=== PATIENT | male | born 1935 | race Caucasian/White ===

== ENCOUNTER 2020-06-08 18:24 | Inpatient (IN) | payer MEDICARE, BC ==
[~2020-06-08] VITALS: Ht 182.9 cm; Wt 79.4 kg
[2020-06-08] MEDS ORDERED: MEMA10TA PO (18:41)
[2020-06-08] MEDS ORDERED: SIMV-46 PO (18:41)
[2020-06-08] MEDS ORDERED: DONE10TA44 PO (18:41)
[2020-06-08] MEDS ORDERED: MULT-447 PO (18:44)
--- NOTE | 2020-06-08 19:32 | NUR ---
GPS RN NOTES: ADMISSION ADMITTED 84 Y/O MALE. PT ADMITTED FROM [facility] TO [facility] ON A 5150 DTS. PER HOLD PT IS HAVING SI. PTS SON CALLED [employer] STATING PT SAID HE WANTED TO END HIS LIFE. PER HOLD PT IS SCARED HE IS GOING TO KILL HIMSELF. IF HE DOESN'T RESERVE HELP. PT REFERENCED NUMEROUS FIREARMS IN HIS HOME A MEANS OF HARMING HIMSELF. UPON FACE TO FACE ASSESSMENT PT IS A/O X3, COOPERATIVE, QUIET, DEPRESSED, FRIENDLY WHEN SPOKEN TO, RESERVED, GUARDED, ANXIOUS, FEARFUL, FLAT AFFECT, AND COMPLAINT. PT IS AMBULATORY W/ ASSISTED DEVICE BUT HAS AN UNSTEADY GAIT. PT EVAL ORDERED FOR THE MORNING . 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 PT PREFERS TO HAVE THEM WITH HIM. HEARING AIDS AT BEDSIDE. PT HAS NO HI AT THIS TIME. WHEN ASKED IF PT IS HAVING SI, PT IS VAGUE AND DOES NOT ANSWER THE QUESTION. SAFETY CHECK Q15 MIN ADMINISTERED FOR SAFETY. PT CURRENTLY HAS NO PLAN TO HURT HIMSELF FOR NOW BECAUSE HE STATES HE IS GETTING HELP HERE. PT SIGNED CONSENT PAPERS. ENVIRONMENTAL SAFETY CHECK Q15 MIN. ENCOURAGE PT TO VERBALIZE THOUGHTS AND FEELINGS TO STAFF. ORIENTED PT IN THE UNIT. AIRCRAFT PILOT MD AWARE OF PTS ADMISSION AND NOTIFY REGARDING MED RECON. BELONGINGS CHECKED FOR CONTRABAND. NURSING ASSESSMENT DONE. SKIN ASSESSMENT DONE. WITH LEFT AND RIGHT OLD SCAR ON THE KNEE, UPPER CHEST REDNESS, UPPER BACK REDNESS, AND OLD SCARS ON HIS FOREHEAD. WOUND CONSULT ORDERED. PICTURES TAKEN AND PLACED ON CHART. PT HAS NUMEROUS TATTOOS ON HIS LOWER AND UPPER EXTREMITIES. PICTURE TAKEN OF PTS FACE FOR IDENTIFICATION IN CHART. PTS RIGHTS DISCUSS BY PHARMACY CARE COORDINATOR. PROVIDE THE PT W/ HANDBOOK AND MED GUIDE. VITALS SIGNS WNL. NO RESP DISTRESS. BREATHING EVEN AND UNLABORED. NO PAIN AT THIS TIME. CONTINUE TO MONITOR
[2020-06-08] MEDS ORDERED: MAG HYDROX/AL HYDROX/SIMETH 30 ML UDC PO PRN (20:00)
[2020-06-08] MEDS ORDERED: ACETAMINOPHEN 325 MG TABLET PO PRN (20:00)
[2020-06-08] MEDS ORDERED: BLOOD SUGAR DIAGNOSTIC 1 EACH STRIP IN ONE (20:00)
[2020-06-08] MEDS ORDERED: MAGNESIUM HYDROXIDE 30 ML UDC PO PRN (20:00)
[2020-06-08 20:20] VITALS: BP 144/98
[2020-06-08] MEDS: TEMAZEPAM 7.5 MG CAPSULE PO PRN (23:38)
--- NOTE | 2020-06-08 23:39 | NUR ---
GPS RN NOTES: INSOMNIA PT C/O UNABLE TO SLEEP. PT REQUESTED SLEEPING MEDICATION. OFFERED RESTORIL 15 MG PO PRN ORDERED. PT AGREED AND TOLERATED MEDICATION WELL. CONTINUE TO MONITOR.
[2020-06-09 07:14] LABS: ALBUMIN 3.9 g/dL (3.4-5.0); CALCIUM, SERUM 8.9 mg/dL (8.5-10.1); POTASSIUM 4.2 mmol/L (3.5-5.1); TOTAL PROTEIN, SERUM 7.5 g/dL (6.4-8.2)
[2020-06-09 07:24] LABS: CHOLESTEROL 165 mg/dL (<200); HDL CHOLESTEROL 63 mg/dL (40-60); LDL 88 mg/dL (0-99); TRIGLYCERIDES 64 mg/dL (30-150)
[2020-06-09 08:00] VITALS: BP 125/74
[2020-06-09] MEDS: SIMVASTATIN 20 MG TABLET PO SCH (08:17)
[2020-06-09] MEDS: MULTIVIT W/MINERALS 1 TAB TABLET PO SCH (08:17)
[2020-06-09] MEDS ORDERED: MEMANTINE HCL 5 MG TABLET PO SCH (09:00)
--- NOTE | 2020-06-09 10:27 | NUR ---
Family Contact: SW called the pts son, Juan J ([phone]), and left a voicemail stating that the SW would like to discuss the pts initial discharge plan and treatment plan.
--- NOTE | 2020-06-09 10:29 | NUR ---
Individual Intervention: SW spoke to the pt about his suicidal urges and the pt expressed that his of 60 years the previous year and he currently lives alone with his dog. Pt stated that he has been feeling lonely after 60 years of companionship. Pt stated that he has a long history of depression and anxiety and stated that he had a psychiatrist who prescribed him 6 drugs but then she moved out of state. Pt stated that he does not have his medicine anymore. Pt stated that he could not take it anymore he had a plan that he was going to shoot his dog and then shoot himself because he did not want the dog to by himself as well. Pt stated that he caught himself and then called his son. Pt states that he hopes he is not making a mistake by admitting himself to the hospital.
[2020-06-09] MEDS ORDERED: RIVASTIGMINE TARTRATE 1.5 MG CAPSULE PO SCH (12:30)
[2020-06-09] MEDS ORDERED: TRAZODONE 50 MG TABLET PO ONE ×2 (12:30→22:00)
[2020-06-09] MEDS: clonazePAM 0.5 MG TABLET PO SCH ×2 (13:13→21:21)
[2020-06-09] MEDS: RIVASTIGMINE TARTRATE 1.5 MG CAPSULE PO SCH ×2 (13:13→21:21)
[2020-06-09] MEDS: LITHIUM CARBONATE (300 MG CAP) 300 MG CAPSULE PO SCH ×2 (13:13→16:51)
--- NOTE | 2020-06-09 14:05 | NUR ---
Family Contact: Pts son, Juan J ([phone]), called the SW and stated that he wants to see how the pt does on the medication that will be administered to him before deciding whether or not the pt will need alternative placement. SW stated that she will keep him updated on the pts progress.
--- NOTE | 2020-06-09 14:14 | NUR ---
Initial Discharge Plan: Pt currently resides at his home alone located at [address] [place] [address]; ([phone]). Per pt, he would like to return to his home. KAMRAN will work with the pt and the MD regarding appropriate discharge planning. SW will form a safe and proper plan.
[2020-06-09 16:00] VITALS: BP 109/62
[2020-06-09 20:21] VITALS: BP 109/67
[2020-06-09] MEDS ORDERED: DONEPEZIL 5 MG TABLET PO SCH (22:00)
[2020-06-09] MEDS ORDERED: TRAZODONE 50 MG TABLET PO SCH ×2 (22:00)
[2020-06-10 08:00] VITALS: BP 114/72
[2020-06-10] MEDS: LITHIUM CARBONATE (300 MG CAP) 300 MG CAPSULE PO SCH ×3 (09:01→16:33)
[2020-06-10] MEDS: clonazePAM 0.5 MG TABLET PO SCH ×2 (09:01→21:10)
[2020-06-10] MEDS: SIMVASTATIN 20 MG TABLET PO SCH (09:01)
[2020-06-10] MEDS: MULTIVIT W/MINERALS 1 TAB TABLET PO SCH (09:01)
[2020-06-10] MEDS: RIVASTIGMINE TARTRATE 1.5 MG CAPSULE PO SCH ×2 (09:01→21:10)
--- NOTE | 2020-06-10 10:24 | NUR ---
WOUND CARE CONSULT: PT SEEN FOR SKIN ASSESSMENT OF CHEST AND BACK. PT PRESENTS WITH SKIN LESIONS TO CHEST AND BACK, PRESENT ON ADMISSION WELL MULTIPLE TATTOOS. 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 NO ITCHING OR IRRITATION NOTED BY PT. WILL SEE PRN.
--- NOTE | 2020-06-10 12:36 | NUR ---
Family Contact: KAMRAN called the pts son, Juan J ([phone]), and was unable to leave a message as his mailbox was full.
[2020-06-10] MEDS: LORAZEPAM 0.5 MG TABLET PO PRN (14:56)
--- NOTE | 2020-06-10 14:59 | NUR ---
RN-CO: PATIENT IS VERY ANXIOUS , HE STATED " I AM VERY VERY AFRAID AND LONELY." HE IS TEARFUL. ATIVAN 1 MG PO GIVEN.
[2020-06-10 16:00] VITALS: BP 107/72
[2020-06-10 20:11] VITALS: BP 95/59
[2020-06-10 21:30] VITALS: BP 105/78
[2020-06-10] MEDS: TRAZODONE 50 MG TABLET PO SCH (21:59)
--- NOTE | 2020-06-11 06:52 | NUR ---
GPS RN NOTES: PT. RESTING HIS ROOM, CALM NOTED AT THIS TIME . NO S/S OF DISTRESS NOTED . NO CHANGE OF CONDITION NOTED, ALL CARE NEEDS MET ANTICIPATED. WILL CONTINUE TO MONITOR FOR SAFETY BEHAVIOR, AND ENDORSE TO AM SHIFT FOR CONTINUITY OF CARE.
[2020-06-11 08:00] VITALS: BP 130/75
[2020-06-11] MEDS: RIVASTIGMINE TARTRATE 1.5 MG CAPSULE PO SCH ×2 (09:46→20:59)
[2020-06-11] MEDS: LITHIUM CARBONATE (300 MG CAP) 300 MG CAPSULE PO SCH ×3 (09:46→17:48)
[2020-06-11] MEDS: SIMVASTATIN 20 MG TABLET PO SCH (09:46)
[2020-06-11] MEDS: MULTIVIT W/MINERALS 1 TAB TABLET PO SCH (09:46)
[2020-06-11] MEDS: clonazePAM 0.5 MG TABLET PO SCH ×2 (09:46→20:58)
[2020-06-11 16:00] VITALS: BP 114/77
--- NOTE | 2020-06-11 16:52 | NUR ---
quiet,cooperative,walking in halls freq. with walker.pleasant.
[2020-06-11 20:00] VITALS: BP 113/78
[2020-06-11] MEDS: TRAZODONE 50 MG TABLET PO SCH (22:23)
--- NOTE | 2020-06-12 07:02 | NUR ---
GPS RN NOTES: PT. RESTING HIS ROOM, CALM NOTED AT THIS TIME . NO S/S OF DISTRESS NOTED . NO CHANGE OF CONDITION NOTED, NO BEHAVIOR PROBLEMS NOTED, ALL CARE NEEDS MET ANTICIPATED. WILL CONTINUE TO MONITOR FOR SAFETY BEHAVIOR, AND ENDORSE TO AM SHIFT FOR CONTINUITY OF CARE.
[2020-06-12 08:00] VITALS: BP 132/75
[2020-06-12] MEDS: RIVASTIGMINE TARTRATE 1.5 MG CAPSULE PO SCH ×2 (08:09→20:33)
[2020-06-12] MEDS: MULTIVIT W/MINERALS 1 TAB TABLET PO SCH (08:09)
[2020-06-12] MEDS: SIMVASTATIN 20 MG TABLET PO SCH (08:09)
[2020-06-12] MEDS: clonazePAM 0.5 MG TABLET PO SCH ×2 (08:09→20:33)
[2020-06-12] MEDS: LITHIUM CARBONATE (300 MG CAP) 300 MG CAPSULE PO SCH ×3 (08:09→16:33)
[2020-06-12 16:00] VITALS: BP 116/69
[2020-06-12] MEDS: LORAZEPAM 0.5 MG TABLET PO PRN (16:33)
--- NOTE | 2020-06-12 16:35 | NUR ---
RN-CO: ATIVAN 1 MG PO GIVEN FOR ANXIETY.
--- NOTE | 2020-06-12 19:46 | NUR ---
RN NOTES: REFUSES SKIN ASSESSMENT PT. REFUSED WEEKLY A THOROUGHLY FULL BODY SKIN ASSESSMENT , PER PT. I DONT NEED TO CHECK MY SKIN SKIN AND MY SKIN IS FINE , ENCOURAGED X3 RISKS TAE EXPLINED ,PT. STRONGLY REFUSED , WILL CONTINUITY WITH CARE .
[2020-06-12 19:47] VITALS: BP 95/56
[2020-06-12] MEDS: TRAZODONE 50 MG TABLET PO SCH (22:22)
--- NOTE | 2020-06-13 07:40 | NUR ---
GPS RN NOTES: PT. RESTING HIS ROOM AT THIS TIME; PATIENT IS CALM. NO S/S OF DISTRESS, NO BEHAVIOR PROBLEMS NOTED. WILL CONTINUE TO MONITOR FOR SAFETY BEHAVIOR.
[2020-06-13 08:00] VITALS: BP 120/81
[2020-06-13] MEDS: RIVASTIGMINE TARTRATE 1.5 MG CAPSULE PO SCH ×2 (08:44→21:28)
[2020-06-13] MEDS: clonazePAM 0.5 MG TABLET PO SCH ×2 (08:44→21:27)
[2020-06-13] MEDS: SIMVASTATIN 20 MG TABLET PO SCH (08:44)
[2020-06-13] MEDS: MULTIVIT W/MINERALS 1 TAB TABLET PO SCH (08:44)
[2020-06-13] MEDS: LITHIUM CARBONATE (300 MG CAP) 300 MG CAPSULE PO SCH ×3 (08:46→16:42)
[2020-06-13 16:00] VITALS: BP 118/59
--- NOTE | 2020-06-13 19:28 | NUR ---
GPS RN NOTES PATIENT RESTING IN ROOM COMFORTABLY; PATIENT IS CALM, NO SIGNS OF DISTRESS AT THIS TIME; NO BEHAVIOR PROBLEMS NOTED; WILL CONT TO MONITOR
[2020-06-13 19:52] VITALS: BP 96/53
[2020-06-13] MEDS: TRAZODONE 50 MG TABLET PO SCH (21:27)
--- NOTE | 2020-06-14 06:34 | NUR ---
GPS RN NOTES PATIENT AWAKE, AMBULATING THROUGHOUT UNIT WITH WALKER, AND STEADY GAIT, WILL CONT TO MONITOR
[2020-06-14 08:00] VITALS: BP 123/68
[2020-06-14] MEDS: SIMVASTATIN 20 MG TABLET PO SCH (08:33)
[2020-06-14] MEDS: LITHIUM CARBONATE (300 MG CAP) 300 MG CAPSULE PO SCH ×3 (08:33→16:44)
[2020-06-14] MEDS: RIVASTIGMINE TARTRATE 1.5 MG CAPSULE PO SCH ×2 (08:33→21:49)
[2020-06-14] MEDS: clonazePAM 0.5 MG TABLET PO SCH ×2 (08:33→21:50)
[2020-06-14] MEDS: MULTIVIT W/MINERALS 1 TAB TABLET PO SCH (08:33)
--- NOTE | 2020-06-14 15:23 | NUR ---
KAMRAN Coordination of Care: rail signal worker spoke to Lucille ([phone]) scheduled Home Health Services through [facility] [id number], [address], [place] [address] and a nurse will be sent to evaluate patient upon discharge.
--- NOTE | 2020-06-14 15:34 | NUR ---
KAMRAN Coordination of Care: This technical writer and editor contacted to make a new pt appointment for pt with (psychiatrist) Dr. Fuentes located at [address] [place] [address] ([phone]) and spoke with Mary who made the appointment for July 07 at 3:30PM. Addendum: 06/14/20 at 1539 by KAMRAN SCHMITZ This technical writer and editor contacted patient's doctors office and spoke with Lu. Patient will follow-up with (tour escort) Dr. Vaughan [address] [facility] [address], [place] [address]; ([phone]) on June 22 at 10:30AM.
--- NOTE | 2020-06-14 15:42 | NUR ---
KAMRAN Coordination of Care: This press writer faxed patient's H & P notes, medication list, and lab results to patients doctors office Dr. Vaughan [address] [facility] [address], [place] [address]; ([phone]) (F:[phone]).
[2020-06-14 16:00] VITALS: BP 118/72
[2020-06-14 20:01] VITALS: BP 117/80
[2020-06-14] MEDS: TRAZODONE 50 MG TABLET PO SCH (21:50)
[2020-06-14] MEDS: TEMAZEPAM 7.5 MG CAPSULE PO PRN (22:24)
--- NOTE | 2020-06-15 01:20 | NUR ---
GPS RN NOTE: PT REQUESTED FOR SLEEP MEDICATION D/T INSOMNIA. AT 2224 RESTORIL 7.5MG 2TAB/15MG GIVEN PO PRN ORDERED. PT CURRENTLY SLEEPING. NO S/S OF DISTRESS, RESPIRATION EVEN AND UNLABORED WITH EQUAL RISE AND FALL OF THE CHEST ON ROOM AIR. WILL CONTINUE TO MONITOR.
--- NOTE | 2020-06-15 07:09 | NUR ---
GPS RN CLOSING NOTES: PT IS LAYING ON BED AWAKE. NO BEHAVIORAL ISSUES THIS SHIFT. MED COMPLIANT. PT SLEPT FOR 7HR. NO S/S OF DISTRESS, RESPIRATION EVEN AND UNLABORED WITH EQUAL RISE AND FALL OF THE CHEST ON ROOM AIR. ALL PT CARE NEEDS MET ANTICIPATED. WILL CONTINUE TO MONITOR AND ENDORSE TO AM SHIFT.
[2020-06-15 08:00] VITALS: BP 116/77
[2020-06-15] MEDS: clonazePAM 0.5 MG TABLET PO SCH ×2 (08:58→21:07)
[2020-06-15] MEDS: SIMVASTATIN 20 MG TABLET PO SCH (08:58)
[2020-06-15] MEDS: RIVASTIGMINE TARTRATE 1.5 MG CAPSULE PO SCH ×2 (08:58→21:07)
[2020-06-15] MEDS: LITHIUM CARBONATE (300 MG CAP) 300 MG CAPSULE PO SCH ×3 (08:58→17:08)
[2020-06-15] MEDS: MULTIVIT W/MINERALS 1 TAB TABLET PO SCH (08:58)
--- NOTE | 2020-06-15 13:44 | NUR ---
PROBABLE CAUSE HEARING: Patient had probable cause hearing today which was upheld for grave disability.
[2020-06-15 16:00] VITALS: BP 108/72
[2020-06-15 20:13] VITALS: BP 101/58
[2020-06-15] MEDS: TRAZODONE 50 MG TABLET PO SCH (21:07)
[2020-06-15] MEDS: TEMAZEPAM 7.5 MG CAPSULE PO PRN (22:13)
--- NOTE | 2020-06-15 22:16 | NUR ---
GPS RN NOTE: INSOMNIA PT. C/O UNABLE TO SLEEP. ADMINISTERED RESTORIL 15 MG PO PRN ORDERED. WILL CONTINUE TO MONITOR FOR SAFETY AND BEHAVIOR.
[2020-06-16 08:30] VITALS: BP 91/63
[2020-06-16] MEDS: clonazePAM 0.5 MG TABLET PO SCH ×2 (08:48→21:20)
[2020-06-16] MEDS: LITHIUM CARBONATE (300 MG CAP) 300 MG CAPSULE PO SCH ×3 (08:48→16:08)
[2020-06-16] MEDS: SIMVASTATIN 20 MG TABLET PO SCH (08:48)
[2020-06-16] MEDS: MULTIVIT W/MINERALS 1 TAB TABLET PO SCH (08:48)
[2020-06-16] MEDS: RIVASTIGMINE TARTRATE 1.5 MG CAPSULE PO SCH ×2 (08:48→21:20)
[2020-06-16 16:00] VITALS: BP 129/71
[2020-06-16 20:15] VITALS: BP 122/75
[2020-06-16] MEDS: TRAZODONE 50 MG TABLET PO SCH (21:20)
[2020-06-17 08:00] VITALS: BP 107/83
[2020-06-17] MEDS: MULTIVIT W/MINERALS 1 TAB TABLET PO SCH (08:49)
[2020-06-17] MEDS: RIVASTIGMINE TARTRATE 1.5 MG CAPSULE PO SCH ×2 (08:49→21:02)
[2020-06-17] MEDS: LITHIUM CARBONATE (300 MG CAP) 300 MG CAPSULE PO SCH ×3 (08:49→16:50)
[2020-06-17] MEDS: SIMVASTATIN 20 MG TABLET PO SCH (08:49)
[2020-06-17] MEDS: clonazePAM 0.5 MG TABLET PO SCH ×2 (08:50→21:02)
--- NOTE | 2020-06-17 13:00 | NUR ---
Family Contact: KAMRAN contacted pts son, Juan J ([phone]) and stated that pt will be discharged Wednesday 06/20 at 1PM. Juan J will nut picker pt.
[2020-06-17 16:00] VITALS: BP 125/78
[2020-06-17 20:44] VITALS: BP 101/53
[2020-06-17] MEDS: TRAZODONE 50 MG TABLET PO SCH (21:02)
[2020-06-18 08:00] VITALS: BP 104/67
[2020-06-18] MEDS: clonazePAM 0.5 MG TABLET PO SCH ×2 (09:14→21:14)
[2020-06-18] MEDS: RIVASTIGMINE TARTRATE 1.5 MG CAPSULE PO SCH ×2 (09:15→21:14)
[2020-06-18] MEDS: SIMVASTATIN 20 MG TABLET PO SCH (09:15)
[2020-06-18] MEDS: LITHIUM CARBONATE (300 MG CAP) 300 MG CAPSULE PO SCH ×3 (09:15→18:23)
[2020-06-18] MEDS: MULTIVIT W/MINERALS 1 TAB TABLET PO SCH (09:15)
--- NOTE | 2020-06-18 10:43 | NUR ---
states to nurse won' make it here till mon.needs something ,short time before this given klonopin.so tylenol given.
[2020-06-18] MEDS: LORAZEPAM 0.5 MG TABLET PO PRN (12:13)
--- NOTE | 2020-06-18 12:13 | NUR ---
given ativan for nervousness.
[2020-06-18 16:00] VITALS: BP 106/71
--- NOTE | 2020-06-18 17:30 | NUR ---
noted dried sanguinous drainage on pt's pillow.pt states has been scratching scab inside rt. ear.instructed pt. to have md look at sore.rn to endorse to next shift.and take photo and follow up with md tomorrow.
[2020-06-18 19:57] VITALS: BP 114/62
[2020-06-18 20:06] VITALS: BP 114/62
--- NOTE | 2020-06-18 20:10 | NUR ---
GPS RN NOTE AT THE BEGINNING OF SHIFT, PATIENT NOTED TO BE SLEEPING & NOTED QUARTER SIZE OF DRIED BLOOD ON HIS PILLOW CASE. ASSESSED THE PATIENT & PER PATIENT HE HAD RIGHT EAR SCAB FOR ABOUT A YEAR & HAS BEEN TREATED BY DR. AGUILAR, HEALTH INFORMATION ASSISTANT PRE CANCER CONDITION. PATIENT PREFERS TO BE SEEN BY DR. AGUILAR ONCE DC FROM [facility]. NO DRAINAGE NOTED AT THIS TIME. NO C/O PAIN VERBALIZED, NO ACTIVE BLEEDING NOTED WELL. PICTURE TAKEN & PLACED IN THE CHART. WILL CONTINUE TO MONITOR.
[2020-06-18] MEDS: TRAZODONE 50 MG TABLET PO SCH (22:16)
--- NOTE | 2020-06-18 23:38 | NUR ---
GPS RN NOTE PATIENT SEEN BY DR. MUNOZ WITH NEW ORDER TO HAVE LITHIUM LEVEL CHECKED IN AM AT 0600 BEFORE GIVING SCHEDULED DOSE OF LITHIUM. ORDER NOTED & CARRIED OUT. PATIENT MADE AWARE.
[2020-06-19 08:00] VITALS: BP 114/72
[2020-06-19] MEDS: LITHIUM CARBONATE (300 MG CAP) 300 MG CAPSULE PO SCH ×3 (08:29→16:21)
[2020-06-19] MEDS: SIMVASTATIN 20 MG TABLET PO SCH (08:29)
[2020-06-19] MEDS: RIVASTIGMINE TARTRATE 1.5 MG CAPSULE PO SCH ×2 (08:29→21:10)
[2020-06-19] MEDS: MULTIVIT W/MINERALS 1 TAB TABLET PO SCH (08:29)
[2020-06-19] MEDS: clonazePAM 0.5 MG TABLET PO SCH ×2 (08:29→21:10)
--- NOTE | 2020-06-19 11:43 | NUR ---
RN NOTES RECEIVED HAND OFF REPORT FOR JC
[2020-06-19 16:00] VITALS: BP 111/77
[2020-06-19 19:50] VITALS: BP 110/63
[2020-06-19] MEDS: TRAZODONE 50 MG TABLET PO SCH (22:09)
--- NOTE | 2020-06-20 06:41 | NUR ---
GPS RN NOTE PATIENT SLEPT WELL AT NIGHT, NO BEHAVIOR EPISODES NOTED. COOPERATIVE, CALM & RELAXED.
[2020-06-20 08:00] VITALS: BP 113/59
[2020-06-20] MEDS: MULTIVIT W/MINERALS 1 TAB TABLET PO SCH (08:20)
[2020-06-20] MEDS: clonazePAM 0.5 MG TABLET PO SCH (08:20)
[2020-06-20] MEDS: SIMVASTATIN 20 MG TABLET PO SCH (08:20)
[2020-06-20] MEDS: LITHIUM CARBONATE (300 MG CAP) 300 MG CAPSULE PO SCH ×2 (08:20→12:06)
[2020-06-20] MEDS: RIVASTIGMINE TARTRATE 1.5 MG CAPSULE PO SCH (08:20)
--- NOTE | 2020-06-20 09:00 | NUR ---
RN NOTE- PT OOB AMBULATORY IN HALLS W FWW, MED COMPLIANT INTERACTIVE ALERT ORIENTED TO PERSON PLACE TIME PURPOSE./ PT DENIES SI HI AH VH CALM DIRECTABLE FOCUS ON DC HOME TODAY
--- NOTE | 2020-06-20 09:38 | NUR ---
Discharge Note: Patient will be discharged back home at [address] [place] [address]; ([phone]). Patients son Juan J ([phone]) will picker tender helper patient at 1PM. Patients andreina Arita is aware and agreeable with discharge plan. Patient appeared alert and oriented x4. Patient is agreeable and aware of discharge. Upon discharge, patient appeared to be calm, cooperative and happy to be going home. Pt appeared to be in a euthymic mood and presented with a calm affect. Pt was appropriately dressed and well groomed. broom worker spoke to Lucille Admin ([phone]) scheduled home health services through [address], [address], [place] [address] and a nurse will be sent to evaluate patient upon discharge on 06/20. Patient denies suicidal and homicidal ideation as well as visual and auditory hallucinations. Patient will follow-up with (finishing range supervisor) Dr. Vaughan [address] [facility] [address], [place] [address]; ([phone]) on June 22 at 10:30AM and will follow up with (psychiatrist) Dr. Fuentes located at [address] [facility] [address] [place] [address]; ([phone]) on July 07 at 3:30PM. Fax of records was sent to the fax number: [phone].
--- NOTE | 2020-06-20 12:04 | NUR ---
Home Health Contact: KAMRAN faxed the pts prescriptions to [facility] to the fax number: [phone].
--- NOTE | 2020-06-20 13:00 | NUR ---
CIVIL DRAFTSMAN NOTE- PT DC HOME TODAY AT THIS TIME TO CARE OF FAMILY. SON RASHEED PICKING PT UP. DC INSTRUCTIONS AND MEDICATIONS REVIEWED W FAMILY AND PT . VERBALIZED UNDERSTANDING RETURNED. VS STABLE, PT ALERT ORIENTED TO PERSON PLACE TIME AND PURPOSE. DENIES SI HI AH VH CALM DIRECTABLE MED COMPLIANT AFFECT APPROPRIATE. ID [id number] REMOVED , VALUABLES RETURNED. ESCORTED OFF UNIT BY THIS RN TO CARE OF SON.
== END 2020-06-20 13:00 | disposition home health service (06) | DRG 885 ==
LOC: GPS 18:24
PROVIDERS: ADMIT Psychiatry & Neurology Psychiatry; ATTEND Internal Medicine
DX: F31.5 Bipolar disorder, current episode depressed, severe, with psychotic features (principal); F23 Brief psychotic disorder; R45.851 Suicidal ideations; F41.9 Anxiety disorder, unspecified; E78.5 Hyperlipidemia, unspecified; F03.90 Unspecified dementia, unspecified severity, without behavioral disturbance, psychotic disturbance, mood disturbance, and anxiety; M62.81 Muscle weakness (generalized)
CPT/HCPCS: 36415; 80053-TC; 80061-TC; 82962-TC; 87081-TC; 97110-TC; 97116-TC; 97530-TC